=== PATIENT | female | born 1970 | race Caucasian/White ===

== ENCOUNTER 2016-06-27 20:54 | Emergency (ER) | payer OTHER ==
[~2016-06-27] VITALS: Ht 162.6 cm; Wt 77.0 kg
[2016-06-27 21:00] VITALS: BP 126/92
== END 2016-06-27 22:30 | disposition left against medical advice (07) ==
LOC: ER 20:55
DX: Z53.21 Procedure and treatment not carried out due to patient leaving prior to being seen by health care provider (principal)

== ENCOUNTER 2016-06-28 01:44 | Emergency (ER) | payer SELFPAY ==
[~2016-06-28] VITALS: Ht 162.6 cm; Wt 77.0 kg
[2016-06-28 04:11] LABS: CLARITY URINE CLOUDY (CLEAR); COLOR URINE DARK YELLOW (YELLOW); GLUCOSE URINE NEGATIVE (NEGATIVE); KETONES URINE 1+ (NEGATIVE); LEUKOCYTE ESTERASE URINE TRACE (NEGATIVE); NITRITE URINE NEGATIVE (NEGATIVE); OCCULT BLOOD URINE NEGATIVE (NEGATIVE); PROTEIN URINE 3+ (NEGATIVE); SPECIFIC GRAVITY URINE 1.019 (1.005-1.030)
[2016-06-28 04:18] VITALS: BP 138/90
[2016-06-28 04:33] LABS: SQUAMOUS EPITHELIAL CELL URINE 1+ /lpf (RARE/1+); TRIPLE PHOSPHATE CRYSTAL URINE 3+ /lpf
[2016-06-28 04:34] LABS: BACTERIA URINE 4+; RBC URINE 0-2 /hpf (0-2)
== END 2016-06-28 04:19 | disposition home or self-care (01) ==
LOC: ER 01:44
DX: N39.0 Urinary tract infection, site not specified (principal)
CPT/HCPCS: 81001; 81025; 99283